=== PATIENT | female | born 1990 | race Hispanic/Latino ===

== ENCOUNTER 2023-04-27 16:21 | Emergency (ER) | payer MEDICAID, OTHER ==
[~2023-04-27] VITALS: Ht 160 cm; Wt 90.3 kg
[~2023-04-27 16:21] MED LIST: PREN-64 PO
[2023-04-27] MEDS: ACETAMINOPHEN 500 MG TABLET PO ONE (18:01)
[2023-04-27] MEDS ORDERED: CYCL-309 PO (18:45)
[2023-04-27] MEDS ORDERED: IBUP-2077 PO (18:45)
[2023-04-27 19:11] VITALS: BP 133/77; PULSE 86; RESP 18; O2SAT 99
== END 2023-04-27 19:12 | disposition home or self-care (01) ==
LOC: EDH 16:21
DX: S29.012A Strain of muscle and tendon of back wall of thorax, initial encounter (principal); S20.211A Contusion of right front wall of thorax, initial encounter; V89.0XXA Person injured in unspecified motor-vehicle accident, nontraffic, initial encounter; Y93.89 Activity, other specified; Y92.89 Other specified places as the place of occurrence of the external cause; Y99.8 Other external cause status
CPT/HCPCS: 71045; 72070